=== PATIENT | female | born 1960 | race Two or more races ===

== ENCOUNTER 2022-04-09 16:44 | Emergency (ER) | payer OTHER ==
[~2022-04-09] VITALS: Ht 162.6 cm; Wt 79.4 kg
[2022-04-09] MEDS ORDERED: IV NS 0.9% 1,000 ML BAG IV ONE (17:00)
--- NOTE | 2022-04-09 17:15 | NUR ---
BIB [facility] FROM HOME,FLU-LIKE SX OF BODY MALAISE/SWEATING X 3 DAYS. PLACED ON BED, AAOX4, BREATHING EVEN AND UNLABORED SATURATING AT 96%RA
--- NOTE | 2022-04-09 17:23 | NUR ---
BLOOD DRAWN AND SENT TO LAB
[2022-04-09] MEDS ORDERED: GABA600T12 PO (17:29)
[2022-04-09] MEDS ORDERED: SENN-261 PO (17:29)
[2022-04-09] MEDS ORDERED: BENA20TA9 PO (17:29)
[2022-04-09] MEDS ORDERED: OMEG1CAP PO (17:29)
[2022-04-09] MEDS ORDERED: METO25TA20 PO (17:29)
[2022-04-09] MEDS ORDERED: ERGO500093 PO (17:29)
[2022-04-09] MEDS ORDERED: MULT-447 PO (17:29)
--- NOTE | 2022-04-09 17:40 | NUR ---
URINE SAMPLE SENT TO LAB
[2022-04-09 17:56] LABS: BASOPHILS % (AUTO) 0.3 % (0.0-2.0); EOSINOPHILS % (AUTO) 0.4 % (0.0-6.0); HEMATOCRIT 35 % (33-45); HEMOGLOBIN 11.3 g/dL (11.5-14.8); LYMPHOCYTES # (AUTO) 1.1 K/uL (0.8-4.8); LYMPHOCYTES % (AUTO) 9.2 % (20.0-44.0); MEAN CORPUSCULAR HGB CONC 32 g/dl (31.0-36.0); MEAN CORPUSCULAR VOLUME 88 fL (82-100); MONOCYTES # (AUTO) 0.7 K/uL (0.1-1.30); MONOCYTES % (AUTO) 6.3 % (2.0-12.0); NEUTROPHILS # (AUTO) 9.8 K/uL (1.8-8.9); NEUTROPHILS % (AUTO) 83.8 % (43.0-81.0); PLATELET COUNT (AUTO) 230 K/uL (150-450); RED BLOOD CELL COUNT(AUTO) 4.01 MIL/uL (4.0-5.2); WHITE BLOOD COUNT (AUTO) 11.7 K/uL (4.3-11.0)
[2022-04-09 18:09] LABS: CALCIUM, SERUM 9.3 mg/dL (8.5-10.1); CARBON DIOXIDE 27 mmol/L (21-32); CHLORIDE 101 mmol/L (98-107); CREATININE 0.7 mg/dL (0.6-1.3); GLUCOSE 152 mg/dL (74-106); POTASSIUM 3.5 mmol/L (3.5-5.1); SODIUM SERUM 134 mmol/L (136-145); UREA NITROGEN, BLOOD 10 mg/dL (7-18)
[2022-04-09 18:17] LABS: BILIRUBIN,URINE NEGATIVE (NEGATIVE); COLOR,URINE YELLOW (YELLOW); LEUKOCYTE ESTERASE ,URINE LARGE (NEGATIVE); NITRITE, URINE POSITIVE (NEGATIVE); PROTEIN,URINE 100 mg/dl (NEGATIVE); UGLUCOSE NEGATIVE (NEGATIVE); UROBILINOGEN,URINE 0.2 EU/dL (0.2)
[2022-04-09] MEDS ORDERED: CEPH500T PO (18:25)
[2022-04-09] MEDS ORDERED: CEFTRIAXONE 1GM BAG (ER ONLY) 50 ML IV ONE ×2 (18:30→18:36)
[2022-04-09 18:34] LABS: ALANINE AMINOTRANSFERASE 33 U/L (12-78); ALKALINE PHOSPHATASE 120 U/L (46-116); ASPARTATE AMINOTRANSFERASE 27 U/L (15-37); BILIRUBIN,DIRECT 0.2 mg/dL (0.0-0.2); BILIRUBIN,TOTAL 0.7 mg/dL (0.2-1.0)
[2022-04-09 18:56] LABS: BACTERIA,URINE 4+ /HPF (None Seen); RBC,URINE 21-50 /HPF (0-2); SQUAMOUS EPITHELIAL CELL,UR 0-2 /HPF (None Seen); WBC,URINE 81-100 /HPF (0-3)
--- NOTE | 2022-04-09 19:52 | NUR ---
PROCALCITONIN 2.51
--- NOTE | 2022-04-09 20:27 | NUR ---
[facility] CALLED FOR TRANSPORT ETA 15 MINS.
--- NOTE | 2022-04-09 21:00 | NUR ---
[facility] AT BED SIDE TO [facility] MANAGEMENT THE PT
--- NOTE | 2022-04-09 21:15 | NUR ---
Patient discharged to home in stable condition. Written and verbal after care instructions given. Patient verbalizes understanding of instruction.
--- NOTE | 2022-04-09 21:20 | NUR ---
PATIENT SPOT WASHER BY [facility] STAFF IN SATABLE CONDITION
[2022-04-09 22:45] VITALS: BP 105/60
== END 2022-04-09 21:20 | disposition home or self-care (01) ==
LOC: ER 16:46
DX: N12 Tubulo-interstitial nephritis, not specified as acute or chronic (principal); I10 Essential (primary) hypertension; E78.00 Pure hypercholesterolemia, unspecified; Z88.8 Allergy status to other drugs, medicaments and biological substances; Z79.899 Other long term (current) drug therapy
CPT/HCPCS: 99285; 96365; 71045; 96361; 93005; 84145; 85025; 80048; 87040 ×2; 83605; 80076; 81001; 36415; 84484; 85730; J7030; J0696